=== PATIENT | male | born 1950 | race Caucasian/White ===

== ENCOUNTER 2022-02-05 17:06 | Emergency (ER) | payer MEDICARE, BC ==
[~2022-02-05] VITALS: Ht 172.7 cm; Wt 79.4 kg
--- NOTE | 2022-02-05 17:22 | NUR ---
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 PT GOWNED AND PLACED ON MONITOR. EKG IN PROCESS, DR ELAINE AWARE. PT ENDORSES HE CONTATRACTED COVID 2 WEEKS AGO BUT ALREADY TESTED NEGATIVE.
[2022-02-05] MEDS ORDERED: ASPIRIN 325 MG TABLET ONE (17:29)
[2022-02-05] MEDS ORDERED: ASPIRIN 325 MG TABLET PO ONE (17:30)
[2022-02-05] MEDS ORDERED: NITROGLYCERIN 0.4 MG/TAB BOTTLE ONE (17:30)
[2022-02-05] MEDS ORDERED: NITROGLYCERIN 0.4 MG/TAB BOTTLE SL ONE (17:30)
[2022-02-05 17:40] VITALS: BP 125/94
--- NOTE | 2022-02-05 17:40 | NUR ---
S0TILL C/O 7/10 PAIN. NITRO 0.4 GIVEN SUBLINGUAL.
[2022-02-05 17:49] LABS: BASOPHILS % (AUTO) 0.3 % (0.0-2.0); EOSINOPHILS % (AUTO) 2.5 % (0.0-6.0); HEMATOCRIT 49 % (39-51); HEMOGLOBIN 16.5 g/dL (13.5-17.5); LYMPHOCYTES # (AUTO) 3.9 K/uL (0.8-4.8); LYMPHOCYTES % (AUTO) 36.6 % (20.0-44.0); MEAN CORPUSCULAR HGB CONC 34 g/dl (31.0-36.0); MEAN CORPUSCULAR VOLUME 96 fL (80-96); MONOCYTES # (AUTO) 1.4 K/uL (0.1-1.30); NEUTROPHILS % (AUTO) 47.6 % (43.0-81.0); PLATELET COUNT (AUTO) 160 K/uL (150-450); RED BLOOD CELL COUNT(AUTO) 5.09 MIL/uL (4.5-6.0); WHITE BLOOD COUNT (AUTO) 10.5 K/uL (4.3-11.0)
--- NOTE | 2022-02-05 17:50 | NUR ---
PT TRANSPORTED VIA 911 TO [facility]. CONDITION: CRITICAL
--- NOTE | 2022-02-05 17:55 | NUR ---
REPORT GIVEN TO CHARGE NURSE TAMY AT [facility].
[2022-02-05] MEDS ORDERED: HEPARIN SODIUM, PORCINE 5000 UNITS/1 ML VIAL IV ONE (18:00)
[2022-02-05 18:14] LABS: CALCIUM, SERUM 9.3 mg/dL (8.5-10.1); CARBON DIOXIDE 26 mmol/L (21-32); CHLORIDE 102 mmol/L (98-107); CREATININE 1.1 mg/dL (0.6-1.3); GLUCOSE 122 mg/dL (74-106); POTASSIUM 3.6 mmol/L (3.5-5.1); SODIUM SERUM 138 mmol/L (136-145); UREA NITROGEN, BLOOD 24 mg/dL (7-18)
== END 2022-02-05 18:06 | disposition short-term general hospital (02) ==
LOC: ER 17:29
DX: I21.19 ST elevation (STEMI) myocardial infarction involving other coronary artery of inferior wall (principal); I10 Essential (primary) hypertension; Z88.0 Allergy status to penicillin; Z79.82 Long term (current) use of aspirin
CPT/HCPCS: 36415; 80048-TC; 83880; 84484-TC; 85025-TC; 85730-TC